=== PATIENT | female | born 1990 ===

== ENCOUNTER 2017-01-16 04:55 | Emergency (ER) | payer SELFPAY ==
[2017-01-16 05:03] VITALS: BP 130/77; PULSE 94; RESP 18; TEMP 98.8; O2SAT 99
--- NOTE | 2017-01-16 05:19 | ED PDOC ---
HPI: Psych/Substance Abuse Time Seen by Provider: 01/16/17 05:00 Chief Complaint (Nursing): Psychiatric Evaluation Chief Complaint (Provider): crisis eval History Per: Patient History/Exam Limitations: no limitations Onset/Duration Of Symptoms: Mins Current Symptoms Are (Timing): Still Present Additional Complaint(s): 26yo female with no PMHx presents to the ED at request of significant other for crisis eval. Patient reports she discovered significant other has been cheating on her which led to verbal altercation and she subsequently left the domicile. Patient's significant other called ambulance because he felt she may be at risk to herself. Patient denies SI, HI, auditory/visual hallucinations. States she would like to go home and attend to her children who need to go to school in the morning. Denies any medical complaints. Past Medical History Reviewed: Historical Data, Nursing Documentation, Vital Signs Vital Signs: Last Vital Signs Temp 98.8 F 01/16/17 05:01 Pulse 94 H 01/16/17 05:01 Resp 18 01/16/17 05:01 BP 130/77 01/16/17 05:01 Pulse Ox 99 01/16/17 05:01 - Medical History PMH: No Chronic Diseases Denies: Diabetes, Hepatitis, HIV, HTN, Chronic Kidney Disease, Seizures, Sexually Transmitted Disease - Surgical History Surgical History: No Surg Hx - Family History Family History: States: No Known Family Hx - Social History Current smoker - smoking cessation education provided: No Alcohol: None Drugs: Denies - Home Medications Home Medications: Ambulatory Orders Medication Instructions Recorded Citalopram [celEXA] 20 mg PO HS #30 tab 08/18/15 clonazePAM [Klonopin] 0.5 mg PO HS #30 tab 08/18/15 - Allergies Allergies/Adverse Reactions: Allergies Allergy/AdvReac Type Severity Reaction Status Date / Time No Known Allergies Allergy Verified 08/13/15 02:43 Review of Systems ROS Statement: Except As Marked, All Systems Reviewed And Found Negative Psych: Positive for: Other (no HI, no auditory/visual hallucinations ). Negative for: Suicidal ideation Physical Exam - Reviewed Nursing Documentation Reviewed: Yes Vital Signs Reviewed: Yes - Physical Exam Appears: Positive for: Well, No Acute Distress Head Exam: Positive for: ATRAUMATIC, NORMAL INSPECTION, NORMOCEPHALIC Skin: Positive for: Normal Color, Warm, Dry Eye Exam: Positive for: Normal appearance, EOMI, PERRL ENT: Positive for: Normal ENT Inspection Neck: Positive for: Normal, Painless ROM, Supple Cardiovascular/Chest: Positive for: Regular Rate, Rhythm. Negative for: Murmur , Tachycardia Respiratory: Positive for: Normal Breath Sounds. Negative for: Wheezing, Respiratory Distress Gastrointestinal/Abdominal: Positive for: Normal Exam, Soft. Negative for: Tenderness Back: Positive for: Normal Inspection Extremity: Positive for: Normal ROM. Negative for: Deformity, Swelling Neurologic/Psych: Positive for: Alert, Oriented - ECG O2 Sat by Pulse Oximetry: 99 Pulse Ox Interpretation: Normal (RA) Medical Decision Making Medical Decision Makin: Impression: 26yo female brought for crisis eval Patient evaluated by crisis and cleared for discharge. Dx: adjustment disorder stable Scribe Attestation: Documented by Suze Stevens acting as a scribe for Ion Marti MD. Provider Scribe Attestation: All medical record entries made by the Scribe were at my direction and personally dictated by me. I have reviewed the chart and agree that the record accurately reflects my personal performance of the history, physical exam, medical decision making, and the department course for this patient. I have also personally directed, reviewed, and agree with the discharge instructions and disposition. Disposition - Clinical Impression Clinical Impression: Adjustment disorder - Patient ED Disposition Is Patient to be Admitted: No - Disposition Disposition: Routine/Home Disposition Time: 05:17 Condition: STABLE Instructions: Stress (ED) Print Language: ALGERIAN
== END 2017-01-16 05:29 | disposition home or self-care (01) ==
LOC: H.ER 04:55
DX: F43.20 Adjustment disorder, unspecified (principal)

== ENCOUNTER 2017-03-09 22:20 | Emergency (ER) | payer OTHER ==
[2017-03-09 22:22] VITALS: BMI 29.2
[2017-03-09 22:25] VITALS: BP 130/89; PULSE 64; RESP 14; TEMP 98.1; O2SAT 100
--- NOTE | 2017-03-10 00:40 | ED PDOC ---
HPI: Psych/Substance Abuse Time Seen by Provider: 03/09/17 22:31 Chief Complaint (Nursing): Psychiatric Evaluation Chief Complaint (Provider): Psychiatric Evaluation History Per: Patient, Family () History/Exam Limitations: no limitations Suicide/Self Injury Attempted (Context): None Modifying Factor(s): None Severity: Moderate Associated Symptoms: Anxiety, Other (patient reports feeling upset). denies: Suicidal Thoughts, Suicidal Plan Additional Complaint(s): 26 year old female with no pertinent medical history is brought into the ED by EMS for a crisis evaluation for possible suicidal ideation. Patient denies having suicidal ideation. She reports feeling upset and anxious in relation to her 's infidelity. History obtained from crisis evaluation: patient's family members have received daily videos from patient demonstrating her crying and upset. Patient also reports having a mild headache and taking ibuprofen. Patient denies having suicidal ideation, visual disturbances, and hallucinations. PMD: Not provided. Past Medical History Reviewed: Historical Data, Nursing Documentation, Vital Signs Vital Signs: Last Vital Signs Temp 98.1 F 03/09/17 22:22 Pulse 64 03/09/17 22:22 Resp 14 03/09/17 22:22 BP 130/89 03/09/17 22:22 Pulse Ox 100 03/09/17 22:22 - Medical History PMH: No Chronic Diseases Denies: Diabetes, Hepatitis, HIV, HTN, Chronic Kidney Disease, Seizures, Sexually Transmitted Disease - Surgical History Surgical History: No Surg Hx - Family History Family History: States: No Known Family Hx - Living Arrangements Living Arrangements: With Family - Social History Current smoker - smoking cessation education provided: No Alcohol: None Drugs: Denies - Home Medications Home Medications: Ambulatory Orders Medication Instructions Recorded Citalopram [celEXA] 20 mg PO HS #30 tab 08/18/15 clonazePAM [Klonopin] 0.5 mg PO HS #30 tab 08/18/15 - Allergies Allergies/Adverse Reactions: Allergies Allergy/AdvReac Type Severity Reaction Status Date / Time No Known Allergies Allergy Verified 03/09/17 22:22 Review of Systems ROS Statement: Except As Marked, All Systems Reviewed And Found Negative Neurological: Positive for: Headache (mild headache) Psych: Positive for: Anxiety Physical Exam - Reviewed Nursing Documentation Reviewed: Yes Vital Signs Reviewed: Yes - Physical Exam Appears: Positive for: Well, Non-toxic, No Acute Distress Head Exam: Positive for: ATRAUMATIC, NORMOCEPHALIC Skin: Positive for: Normal Color, Warm, Dry Eye Exam: Positive for: Normal appearance ENT: Positive for: Normal ENT Inspection Neck: Positive for: Normal Cardiovascular/Chest: Positive for: Regular Rate, Rhythm Respiratory: Positive for: Normal Breath Sounds. Negative for: Respiratory Distress Gastrointestinal/Abdominal: Positive for: Normal Exam Neurologic/Psych: Positive for: Alert, Oriented (3x) - ECG O2 Sat by Pulse Oximetry: 100 (RA) Pulse Ox Interpretation: Normal Medical Decision Making Medical Decision Makin:31 Initial impression: 26 year old female is brought into the ED for a crisis evaluation Initial plan: * crisis evaluation * urine * udip * drug screen, urinary * reevaluation 00:25 Patient is evaluated by crisis. Obtained collateral information from . Patient is stable for discharge. Patient is diagnosed with adjustment disorder and referred to [facility]. Scribe Attestation: Documented by Inés Maxwell, acting as a scribe for Ion Marti MD. Provider Scribe Attestation: All medical record entries made by the Scribe were at my direction and personally dictated by me. I have reviewed the chart and agree that the record accurately reflects my personal performance of the history, physical exam, medical decision making, and the department course for this patient. I have also personally directed, reviewed, and agree with the discharge instructions and disposition. Disposition - Clinical Impression Clinical Impression: Adjustment disorder - Disposition Disposition Time: 00:25 Condition: STABLE Instructions: Stress (ED) Forms: [employer] (Mongolian) Print Language: BHUTANESE
== END 2017-03-10 00:43 | disposition home or self-care (01) ==
LOC: H.ER 22:20
DX: F43.20 Adjustment disorder, unspecified (principal)